=== PATIENT | female | born 1980 | race Caucasian/White ===

== ENCOUNTER → 2020-12-07 | Outpatient (CLI) | payer OTHER, SELFPAY ==
[~2020-12-07] MED LIST: COLLAGEN PO; CVS1CAP2 PO; FISH1000 PO; IRON27TA2 PO; IRON65TA2 PO; VITMTA PO
== END ==
LOC: M LABSMTC 11:39
PROVIDERS: ATTEND Anesthesiology
DX: Z01.812 Encounter for preprocedural laboratory examination (principal); Z20.822 Contact with and (suspected) exposure to COVID-19

== ENCOUNTER 2020-12-12 06:03 | Day surgery (SDC) | payer OTHER, SELFPAY ==
[~2020-12-12] VITALS: Ht 170.2 cm; Wt 54.1 kg
[~2020-12-12 06:03] MED LIST changes: +LR 1,000 ML IV ONE
[2020-12-12 06:37] LABS: HEMATOCRIT 37.7 % (36.0-47.0); HEMOGLOBIN 12.3 g/dl (12.0-15.5); MEAN CORPUSCULAR HEMOGLOBIN 30.1 pg (27.0-33.0); MEAN CORPUSCULAR HGB CONC 32.6 g/dl (32.0-36.5); MEAN CORPUSCULAR VOLUME 92.2 fl (80.0-96.0); PLATELET COUNT, AUTOMATED 246 10^3/uL (150-450); RED BLOOD COUNT 4.09 10^6/uL (4.00-5.40); WHITE BLOOD COUNT 5.5 10^3/uL (4.0-10.0)
[2020-12-12 06:53] LABS: BLOOD UREA NITROGEN 12 MG/DL (7-18); CALCIUM LEVEL 8.6 MG/DL (8.5-10.1); CARBON DIOXIDE LEVEL 27 MEQ/L (21-32); CHLORIDE LEVEL 108 MEQ/L (98-107); CREATININE FOR GFR 0.62 MG/DL (0.55-1.30); GLOMERULAR FILTRATION RATE > 60.0 (>60); GLUCOSE, FASTING 89 MG/DL (70-100); POTASSIUM SERUM 3.9 MEQ/L (3.5-5.1); SODIUM LEVEL 140 MEQ/L (136-145)
[2020-12-12] MEDS ORDERED: fentaNYL 100 MCG/2 ML INJECTION (J3010) As Ordered ONE (07:01)
[2020-12-12] MEDS ORDERED: MIDAZOLAM INJ 2MG/2ML VIAL (J2250 PER 1MG) As Ordered ONE (07:01)
[2020-12-12] MEDS ORDERED: LIDOCAINE 2% 100MG/5ML SDV (FOR ANES.) As Ordered ONE (07:02)
[2020-12-12] MEDS ORDERED: propofoL 200 MG/20 ML VIAL As Ordered ONE ×2 (07:02→13:46)
[2020-12-12] MEDS ORDERED: ONDANSETRON 4MG/2ML VIAL As Ordered ONE (07:03)
[2020-12-12] MEDS ORDERED: ACETAMINOPHEN 1000MG 100ML IV BTL (OFIRMEV) (J0131 PER 10MG) As Ordered ONE (07:03)
[2020-12-12] MEDS ORDERED: dexameTHASONE 4 MG/ML 1ML VIAL (J1100 PER 1MG) As Ordered ONE (07:03)
[2020-12-12] MEDS ORDERED: SCOPOLAMINE 1MG TRANSDERMAL PATCH TOP ONE (07:05)
[2020-12-12] MEDS ORDERED: LIDOCAINE 1% MDV 20ML VIAL As Ordered ONE (07:14)
[2020-12-12] MEDS ORDERED: GENTAMICIN SULF 80MG/2ML VIAL As Ordered ONE (07:14)
[2020-12-12] MEDS ORDERED: EPINEPHrine INJ 1 MG/ML 1ML AMP As Ordered ONE (07:15)
[2020-12-12] MEDS ORDERED: ceFAZolin 1GM VIAL (J0690 PER 500MG) As Ordered ONE (07:41)
[2020-12-12] MEDS ORDERED: METOCLOPRAMIDE INJ 10MG/2ML VIAL (J2765 PER 1) As Ordered ONE (07:55)
[2020-12-12] MEDS ORDERED: PHENYLephrine 500MCG 5ML (100MCG/ML) SYRINGE As Ordered ONE ×2 (08:13→08:42)
[2020-12-12] MEDS ORDERED: ePHEDrine SULFATE 25 MG/5 ML(5MG/ML) SYRINGE As Ordered ONE ×2 (08:13→08:42)
[2020-12-12] MEDS: BUPIVACAINE LIPOSOME/PF 1.3% 20ML VIAL (13.3MG/ML)(EXPAREL)(C9290 PER1MG) As Ordered ONE ×2 (09:28→09:56)
[2020-12-12] MEDS ORDERED: BACITRACIN OINTMENT 30GM TUBE As Ordered ONE (09:45)
--- NOTE | 2020-12-12 10:28 | POST-OPPD ---
Postoperative Procedure Note Date Of Procedure: Dec 12, 2020 PREOPERATIVE DIAGNOSIS: bilateral breast ptosis, hypomastia. POSTOPERATIVE DIAGNOSIS: same PROCEDURE: Bilateral breast mastopexy with augmentation. SURGEON: Dr Marie WEIGHT ENGINEER: none ANESTHESIA: General ESTIMATED BLOOD LOSS: 25 cc FINDINGS: ptosis SPECIMENS: none COMPLICATIONS: none REPLACED: none DRAINS: none IMPLANTS: Miracle MemoryGel Xtra Breast implant. Smooth Moderate High Profile. POSTOPERATIVE CONDITION: stable LAKESHIA MARIE DO Dec 12, 2020 10:28
[2020-12-12] MEDS ORDERED: LR 1,000 ML IV SCH (10:30)
[2020-12-12] MEDS ORDERED: METOCLOPRAMIDE INJ 10MG/2ML VIAL (J2765 PER 1) IV PRN (10:30)
[2020-12-12] MEDS ORDERED: ONDANSETRON 4MG/2ML VIAL IV PRN (10:30)
[2020-12-12] MEDS ORDERED: MEPERIDINE INJ 25 MG/ML VIAL (J2175) IV PRN (10:30)
[2020-12-12] MEDS ORDERED: fentaNYL 100 MCG/2 ML INJECTION (J3010) IV PRN (10:30)
[2020-12-12] MEDS ORDERED: oxyCODONE 5MG TAB PO PRN (10:30)
--- NOTE | 2020-12-12 10:30 | ROOPDOC ---
[facility] Report Of Operation Report of Operation As well OF PROCEDURE: 12/12/20 PREOPERATIVE DIAGNOSIS: bilateral breast ptosis, hypomastia. POSTOPERATIVE DIAGNOSIS: same PROCEDURE: Bilateral breast mastopexy with augmentation. SURGEON: Dr Marie SALES ENABLEMENT SPECIALIST: none ANESTHESIA: General ESTIMATED BLOOD LOSS: 25 cc FINDINGS: ptosis SPECIMENS: none COMPLICATIONS: none REPLACED: none DRAINS: none IMPLANTS: Concord MemoryGel Xtra Breast implant. Smooth Moderate High Profile. 280 cc. POSTOPERATIVE CONDITION: stable DESCRIPTION OF PROCEDURE: This is a 40-year-old female who presents to our office complaining of loss of volume of both breasts with mild ptosis. Patient would like to have her breast larger size as well as left. 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 Her measurements are from sternal notch to the nipple areolar complex 23 cm bilaterally. Her inframammary fold (IMF) is at 21 cm. Patient wishes to have a breast lift. She also has a wide, thin breast with a lot of laxity in her tissues. Bilateral Mastopexy is the appropriate choice of procedure. Risks, benefits, and alternatives were discussed with the patient in detail, and she is ready to proceed. Informed consent obtained from the patient for bilateral breast augmentation and mastopexy. The day of surgery, she was marked in the upright position. Preoperative antibiotics given. Informed consent obtained. She was brought into the operating room and placed in supine position. General anesthesia was induced. She was prepped and draped in the usual sterile fashion. We started our procedure on the right side. Nipple areolar complex was to remain the same size. We planned for crescent mastopexy, and outlined incision according superior periareolar margin. Her lift would be 2 cm on each side. Incision was carried out, tissue was scored, and then superior periareolar tissue was removed by deepithelializing the skin. Dissection continued under direct vision of lighted retractor straight down until pectoralis muscle was identified. Subglandular pocket was created using electrocautery and PEEK cautery. Hemostasis was obtained. Sizer was used to match the correct size of implant. 280 mL Concord gel extra fill sizer was introduced in the pocket, which proven to be perfect fit for her frame. Wound is irrigated with gentamicin i rrigation solution. 280 mL Concord smooth round gel moderate high profile Xtra fill implant was introduced without difficulties using non touch technique with Chaparro funnel. Pocket closed in layers with 3-0 Vicryl sutures 3-0, 4-0 Monocryl sutures. Nipple areolar was closed with 3-0 Monocryl, 4 Monocryl and 5-0 plain gut sutures. Then we turned our attention to the left side. Nipple areolar complex was to remain the same size. We planned for crescent mastopexy, and outlined incision according superior periareolar margin. Her lift would be 2 cm on each side. Incision was carried out, tissue was scored, and then superior periareolar tissue was removed by deepithelializing the skin. Dissection continued under direct vision of lighted retractor straight down until pectoralis muscle was identified. Subglandular pocket was created using electrocautery and PEEK cautery. Hemostasis was obtained. Sizer was used to match the correct size of implant. 280 mL Concord gel extra fill sizer was introduced in the pocket, which proven to be perfect fit for her frame. Wound is irrigated with gentamicin irrigation solution. 280 mL Concord smooth round gel moderate high profile Xtra fill implant was introduced without difficulties using non touch technique with Chaparro funnel. Pocket closed in layers with 3-0 Vicryl sutures 3-0, 4-0 Monocryl sutures. Nipple areolar was closed with 3-0 Monocryl, 4 Monocryl and 5-0 plain gut sutures. Bacitracin ointment and Xeroform dressing applied to incision, followed by bulky dressing and support bra. Patient extubated in OR without difficulties, transferred to recovery room in stable condition. LAKESHIA MARIE DO Dec 12, 2020 10:30
[2020-12-12] MEDS ORDERED: TRAM50TA2 PO (10:39)
[2020-12-12 12:38] VITALS: BP 107/58
== END 2020-12-12 12:41 | disposition home or self-care (01) ==
LOC: M SDC 06:03
PROVIDERS: ATTEND Plastic Surgery Surgery of the Hand
DX: N64.82 Hypoplasia of breast (principal); N64.81 Ptosis of breast; D64.9 Anemia, unspecified
CPT/HCPCS: 19316; 19325; 36415; 80048; 81025; 85027; C9290; J0131; J0690; J1100; J1580; J2250; J2370; J2405; J2765; J3010; L8600